=== PATIENT | female | born 1990 | race Caucasian/White ===

== ENCOUNTER 2021-07-26 13:09 | Emergency (ER) | payer OTHER, SELFPAY ==
[2021-07-26 13:05] VITALS: BP 100/58; PULSE 81; RESP 20; TEMP 36.8; O2SAT 100
--- NOTE | 2021-07-26 13:17 | ECG_ITS ---
Measurements Intervals Counce Rate: 77 P: 53 NH: 150 QRS: 31 QRSD: 102 T: 37 QT: 377 QTc: 429 Interpretive Statements SINUS RHYTHM INCOMPLETE RIGHT BUNDLE BRANCH BLOCK LOW QRS VOLTAGE IN PRECORDIAL LEADS BORDERLINE ECG Electronically Signed On 07-26-2021 15:45:55 CDT by Wallace Bronson D.O.
[2021-07-26 13:18] VITALS: BP 116/72; PULSE 81; RESP 23; O2SAT 100
--- NOTE | 2021-07-26 15:44 | ED.GENADULT ---
HPI - General Adult General Chief complaint: Allergic Reaction Stated complaint: ANAPHYLAXIS Time Seen by Provider: 07/26/21 13:48 Source: patient Mode of arrival: EMS Limitations: no limitations History of Present Illness HPI narrative: Patient presents with chief complaints of feelings of allergic reaction/anaphylaxis that began while working outdoors. Patient states that the cause of her symptoms is unknown but she began to feel as if she cannot breathe and her throat was swelling. Patient states she has had anaphylaxis in the past after bee stings. Patient reports yesterday she began having a rash to the right side of her cheek that began after touching her face with the backside of her glove. Patient states she is exposed to many chemicals, dirt dust and other irritants while working. Patient denies any fever, chills, nausea, vomiting, diarrhea or any other symptoms. Patient was given Benadryl and epinephrine in route by EMS. Patient reports some improvement in her symptoms after the administration however she still feels some itching and swelling to her throat and tightness with breathing. Related Data Home Medications Medication Instructions Recorded Confirmed No Home Medications 07/26/21 07/26/21 Allergies Allergy/AdvReac Type Severity Reaction Status Date / Time Penicillins Allergy Unknown Vomiting Verified 07/26/21 13:13 Sulfa (Sulfonamide Allergy Unknown Vomiting Verified 07/26/21 13:13 Antibiotics) bee venom protein (honey bee) Allergy Anaphylaxis Verified 07/26/21 13:13 [bees] Review of Systems Review of Systems: CONSTITUTIONAL: Denies fever, chills, or sweats. EYES: Denies visual changes, redness, or discharge. ENT: Reports swelling of throat denies rhinorrhea, congestion, sore throat, or otalgia. CARDIOVASCULAR: Denies chest pain, palpitations, or edema. RESPIRATORY: Denies cough or dyspnea. GASTROINTESTINAL: Denies abdominal pain, nausea, vomiting, or diarrhea. GENITOURINARY: Denies dysuria or hematuria. SKIN: Reports rash and itching. MUSCULOSKELETAL: Denies back pain, joint pain, or myalgia. NEUROLOGIC: Denies headache, numbness, dizziness, or weakness. PSYCHIATRIC: Denies anxiety or depression. Exam Narrative: GENERAL: Well-appearing, well-nourished, and in no acute distress. HEAD: Normocephalic, atraumatic. EYES: PERRLA and EOMI. ENT: Nares clear, no rhinorrhea or epistaxis. Mucous membranes moist. Oropharynx without tonsillar hypertrophy exudate or other lesions. Patient able to handle her secretions. Bilateral TMs pearly gruber nonbulging NECK: Supple. No adenopathy or masses. Airway is patent. CHEST: Clear to auscultation. No respiratory distress. No wheezes rales or rhonchi. Patient able to speak in complete sentences without gasping or difficulty. HEART: Regular rate and rhythm. No murmur heard. Normal peripheral pulses. EXTREMITIES: Normal range of motion. No edema. SKIN: Red raised rash to right side of face appears to be irritant contact dermatitis. Warm, dry, no rash. NEURO: No focal deficits. Alert and oriented x3. PSYCH: Normal mood and affect. Course Vital Signs Vital signs: Vital Signs Temperature 98.2 F 07/26/21 13:05 Pulse Rate 81 07/26/21 13:05 Respiratory Rate 20 07/26/21 13:05 Blood Pressure 100/58 L 07/26/21 13:05 Pulse Oximetry 100 07/26/21 13:05 Temperature 98.2 F 07/26/21 13:05 Pulse Rate 81 07/26/21 13:18 Respiratory Rate 23 H 07/26/21 13:18 Blood Pressure 116/72 07/26/21 13:18 Pulse Oximetry 100 07/26/21 13:18 Medical Decision Making [facility] Narrative Medical decision making narrative: After Benadryl and epinephrine administration by EMS and Decadron administration in ER patient feels complete resolution of her swelling in her mouth and throat. Patient's rash is also improved but has not completely resolved.Patient has been monitoring her symptoms have not returned. Patient will be prescribed EpiPen in case anaphylactic reaction happ
[2021-07-26 16:16] VITALS: BP 130/78; PULSE 89; RESP 16; O2SAT 97
== END 2021-07-26 16:17 | disposition home or self-care (01) ==
PROVIDERS: Emergency Provider Emergency Medicine; PCP Family Medicine
DX: T78.40XA Allergy, unspecified, initial encounter (principal); L24.9 Irritant contact dermatitis, unspecified cause; I45.10 Unspecified right bundle-branch block
CPT/HCPCS: 93005; 99283

== ENCOUNTER 2022-10-27 10:46 | Outpatient (CLI) | payer OTHER, SELFPAY ==
--- NOTE | ~2022-10-27 | PE_ITS ---
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 Fever. Abdominal pain. Back pain. TECHNIQUE: Blood glucose level was 90 mg/dL. 10.031 mCi of 18-fluorodeoxyglucose (18-FDG) was adminis tered i.v. Low dose computed tomography (CT) images were acquired from the base of the brain to the p roximal thighs for attenuation correction and anatomic localization. Automated exposure control was e mployed. Dose-length product (DLP) was 936 mGy-cm. Positron emission tomography (PET) images were acq uired in the same distribution. COMPARISON: None FINDINGS: Head/neck: There is increased activity in the oral cavity, oropharynx, major salivary glands, and madina ttis without abnormal CT correlate, likely physiologic. There are no pathologically enlarged lymph no barbara. Chest: There is a 1.6 cm nodule in left lung lower lobe without increased activity. No pleural effusi on. The heart size is normal. No pericardial effusion. There are no pathologically enlarged lymph nod es. There is increased activity in bone marrow without abnormal CT correlate, likely bone marrow stim ulation. Abdomen/pelvis/proximal thighs: The liver, gallbladder, spleen, pancreas, adrenal glands, and kidneys are normal. There are no dilated bowel. There is physiologic fluid in the pelvis. There are no patho logically enlarged lymph nodes. There is increased activity in bone marrow without abnormal CT correl ate, likely bone marrow stimulation. IMPRESSION: 1. 1.6 cm nodule in left lung lower lobe without increased activity, likely benign. Noncontrast low-d ose chest CT is recommended in 6 months. Reviewed, dictated and finalized at location A. ER[facility] CHECKER IMPRESSION: 1. 1.6 cm nodule in left lung lower lobe without increased activity, likely virgie ign. Noncontrast low-dose chest CT is recommended in 6 months.
[2022-10-27 11:53] LABS: Glucose Point of Care 90 mg/dl (65-105)
== END 2022-10-27 10:47 | disposition home or self-care (01) ==
PROVIDERS: PCP Family Medicine; Visit Provider Family Medicine
DX: R91.1 Solitary pulmonary nodule (principal); R50.9 Fever, unspecified; M54.9 Dorsalgia, unspecified; R10.9 Unspecified abdominal pain; R30.0 Dysuria; R63.5 Abnormal weight gain; D38.1 Neoplasm of uncertain behavior of trachea, bronchus and lung
CPT/HCPCS: 78815; A9552